=== PATIENT | male | born 1965 | race Caucasian/White ===

== ENCOUNTER 2024-04-29 11:34 | Outpatient (CLI) | payer BC, SELFPAY ==
--- NOTE | 2024-04-29 11:45 | CT_ITS ---
WS: [id number] CT ABDOMEN AND PELVIS WITH CONTRAST HISTORY: r/o appendicitis - RLQ abd pain and rebound TECHNIQUE: Imaging performed of the abdomen and pelvis with IV contrast. Single phase imaging of the abdomen. Coronal and sagittal reformats are submitted. All CT scans at [facility] use at [address] one of these dose optimization techniques: automated exposure control; mA and/or kV adjustment per patient size (includes targeted exams where dose is matched to clinical indication); or iterative re construction. IV CONTRAST: Omnipaque 350; 100 mL IV. Oral contrast: No DLP: 611.37 mGy.cm COMPARISON: None available. Lower thorax: Lung bases are clear. Heart is normal size. No hiatal hernia. Liver/biliary system: Normal size with no intrahepatic dilatation. Gallbladder: Normal. No gallstones or wall thickening. No pericholecystic fluid. Pancreas: Normal size pancreas and pancreatic duct. No adjacent inflammation. Spleen: Normal size spleen. No mass or infarct. Adrenal glands: Normal. Right kidney: Normal. Left kidney: Normal. Aorta: Normal. Lymphadenopathy: None. Free fluid: None. GI tract: Acute inflammatory changes surrounding the appendix. The appendix is dilated to 15 mm. Mild to marked hyperemia. No perforation or abscess. No free fluid. Otherwise negative. Abdominal wall: Unremarkable abdominal wall. No hernia. Pelvis: No free fluid or adenopathy within the pelvis. Bones: Unremarkable. CT/CT abdomen pelvis w con* [id number] IMPRESSION: 1. Acute appendicitis without perforation. 2. No additional acute findings. Notified Silvano Tolliver MD at 04/29/2024 12:13 PM. Patient directed to the emergency department per Dr. Tolliver.
[2024-04-29] MEDS: iohexol 350 mg/mL 500 mL Btl (per mL) IV (11:50)
== END 2024-04-29 11:35 | disposition home or self-care (01) ==
LOC: RAD 11:34
PROVIDERS: Family Provider Family Medicine; PCP Family Medicine; Visit Provider Family Medicine
DX: K35.80 Unspecified acute appendicitis
CPT/HCPCS: 74177; Q9967

== ENCOUNTER 2024-04-29 12:16 | Day surgery (SDC) | payer BC, SELFPAY ==
[2024-04-29] VITALS (14 sets, daily range): BP systolic 114–166; BP diastolic 74–100; PULSE 64–912; RESP 14–18; TEMP 36.2–36.7; O2SAT 90–98
--- NOTE | 2024-04-29 12:45 | W.ED.ABDPA2 ---
HPI - Abdominal Pain General: Chief Complaint: Abdominal Pain Stated Complaint: sent by CT (appendicitis) Time Seen by Provider: 04/29/24 12:18 Source: patient Mode of arrival: ambulatory Limitations: no limitations History of Present Illness: 50-year-old male states been having right lower quadrant abdominal pain since last night states it worsened today and his pain was a 7 out of 10 he was seen by his PCP and sent here to have a CT scan that did show appendicitis and sent to the ER he rates his pain a 4 out of 10 currently denies any vomiting or diarrhea y Associated Symptoms: Denies chills, diarrhea, fever(s), nausea and vomiting Review of Systems Const: Denies: fever(s), chills, body aches or change in appetite ENMT: Denies: throat pain or dental pain Card: Denies: chest pain Resp: Denies: dyspnea GI: Reports: abdominal pain; Denies: nausea, vomiting or diarrhea Musc: Denies: neck pain or back pain Skin/Breast: Denies: rash Neuro: Denies: headache(s) PFSH ED PFSH: Social History Smoking and tobacco/nicotine status: unknown if used tobacco/nicotine Physical Exam Const: COMMON NORMALS: no acute distress, patient oriented x3 and healthy appearing HENMT: COMMON NORMALS: normocephalic and atraumatic HEAD & SCALP: normocephalic and atraumatic Neck/C-Spine: COMMON NORMALS: full ROM and supple Chest: COMMONS NORMALS: normal inspection of the chest Resp: COMMON NORMALS: normal respiratory effort Cardio: COMMON NORMALS: regular rate, regular rhythm and No murmurs present (Cardio) RATE: regular rate RHYTHM: regular rhythm GI: COMMON NORMALS: Normal to inspection, nondistended, normoactive bowel sounds present, Soft to palpation and no masses PALPATION: Yes Soft to palpation and Yes Tenderness to palpation present (GI) Details: RLQ Extremity: COMMON NORMALS: normal to inspection and full ROM Neuro: COMMON NORMALS: patient oriented x3, moves all extremities and no focal motor deficits Psych: COMMON NORMALS: mental status grossly normal, Normal thought process present and cooperative THOUGHT PROCESS: Normal thought process present Skin: COMMON NORMALS: no rashes or lesions noted and no wounds GENERAL SKIN EXAM: no rashes or lesions noted Course Vital Signs: Vital signs: Vital Signs Temperature 97.6 F 04/29/24 12:26 Pulse Rate 912 H 04/29/24 12:26 Respiratory Rate 14 04/29/24 12:26 Blood Pressure 147/96 04/29/24 12:26 Pulse Oximetry 96 04/29/24 12:26 Oxygen Delivery Me thod Room Air 04/29/24 12:26 MDM - Abdominal Pain Medical Decision Making Patient presents here with appendicitis I did speak to Dr. Olmedo patient had IV antibiotics started will go to the OR Medical Records I reviewed the patient's medical records. Lab Data I reviewed the patient's lab results. All radiology interpretation(s) finalized by discharge Discharge Plan Discharge Patient Disposition: Admitted As Inpatient Clinical Impression: Acute appendicitis Condition: Stable Prescriptions: No Action levothyroxine 75 mcg tablet See Rx Instructions .ROUTE .COMPLEX Qty: 90 11RF Dose Instruction: TAKE 1 TABLET BY MOUTH DAILY 30 MINUTES PRIOR TO FOOD OR MEDS IN THE MORNING Rx Instructions: TAKE 1 TABLET BY MOUTH DAILY 30 MINUTES PRIOR TO FOOD OR MEDS IN THE MORNING Referrals: Silvano Tolliver MD [Primary Care Provider] - Patient Instructions: Appendicitis (GEN) Coding Level of Care Code ED Equipment Maintenance Superintendent for Suly Meyer
[2024-04-29] MEDS: piperacillin-tazobactam 3.375 GM in sodium chloride 0.9% (plus) 50 ML IV (12:58)
[2024-04-29 13:01] LABS: Basophils % 0.3 %; Eosinophils % 0.1 %; Hematocrit 44.6 % (37-53); Lymphocytes # 1.1 10^3/uL (0.8-4.8); Lymphocytes % 7.7 %; Mean Platelet Volume 9.9 fL (7.4-10.4); Monocytes # 1.2 10^3/uL (0.2-0.9); Monocytes % 8.1 %; Neutrophils # 11.97 10^3/uL (1.8-7.7); Neutrophils % 83.2 %; Nucleated Red Blood Cells % 0 %; Platelet Count 260 10^3/cmm (157-399); Red Blood Count 5.07 10^6/uL (3.85-5.65); Red Cell Distribution Width 14.2 % (12.1-15.1); White Blood Count 14.38 10^3/uL (3.29-11.43)
--- NOTE | 2024-04-29 13:16 | PC.NURSE ---
pt upon arriving to er was informed of NPO status. pt aware and voiced understanding. pt states he has not ate any food since 5pm yesterday, and states that he had only a few small sips of water this morning, nothing else. pt changed into gown, hospital socks, and has a 20g iv estb. to right ac.
[2024-04-29 13:23] LABS: Alanine Aminotransferase 15 U/L (0-41); Albumin Level 4.5 g/dL (3.5-5.2); Alkaline Phosphatase 81 U/L (40-130); Anion Gap 17.6 (5-19); Aspartate Amino Transferase 11 U/L (0-40); Blood Urea Nitrogen 20 mg/dL (6-20); Calcium 9.2 mg/dL (8.5-10.5); Carbon Dioxide 22 mmol/L (22-29); Chloride 103 mmol/L (98-107); Creatinine Clr Calc Pharmacy 156.4947; Globulin 3.4 g/dL (1.3-4.6); Glomerular Filtration Rate 138.4 mL/min (90-130); Glucose 106 mg/dL (65-115); Lipase 17 U/L (13-60); Osmolality Calculated 289 mOsm/kg (285-295); Potassium 4.6 mmol/L (3.5-5.1); Sodium 138 mmol/L (136-145); Total Bilirubin 0.3 mg/dL (0.15-1.2); Total Protein 7.9 g/dL (6.6-8.7)
--- NOTE | 2024-04-29 13:34 | ANES.PREANE2 ---
Pre-Anesthetic Assessment Height/Weight: Height 1.78 m Weight 96.615 kg Temp Pulse Resp BP Pulse Ox O2 Del Method 97.6 F 84 16 128/77 96 Room Air 04/29/24 12:26 04/29/24 13:05 04/29/24 13:05 04/29/24 13:05 04/29/24 13:05 04/29/24 13:05 Operation Date: 04/29/24 13:30 Proposed Procedures p Laparoscopic Appendectomy(Not Applicable) - Jg Olmedo DO Familial anesthetic complications: None Was Beta Odalys taken within 24 hours: N/A Was Clonidine taken within 24 hours: N/A Last intake: > 8 hrs Social No alcohol and No tobacco Exam alert, oriented x 3, clear to auscultation bilaterally and regular rate & rhythm Airway Mallampati: Class II Dentition: other (couple missing) Metabolic Thyroid Disease Anesthetic Plan ASA status: 2 Anesthesia: General Risk of > 500 ml blood loss (7ml/kg in children): No Medications/Allergies Home Medications Medication Instructions Recorded Confirmed Last Taken Type levothyroxine 75 mcg tablet See Rx Instructions .Route 11/01/23 04/29/24 Unknown Rx .COMPLEX #90 tabs Allergies Allergy/AdvReac Type Severity Reaction Status Date / Time No Known Allergies Allergy Unverified 08/21/22 13:14 [facility] Anesthesia Social History Smoking and tobacco/nicotine status: unknown if used tobacco/nicotine Data Anesthesia 04/29/24 12:42 04/29/24 12:42 Short CBC 04/29/24 Range/Units 12:42 WBC 14.38 H (3.29-11.43) 10^3/uL Hgb 14.70 (11.27-16.99) g/dL Hct 44.6 (37-53) % MCV 88.0 (82-101) fl Plt Count 260 (157-399) 10^3/cmm Neut % (Auto) 83.2 % Neut # (Auto) 11.97 H (1.8-7.7) 10^3/uL BMP 04/29/24 12:42 Sodium 138 Potassium 4.6 Chloride 103 Carbon Dioxide 22 BUN 20 Creatinine 0.6 L Glucose 106 Calcium 9.2 Liver Function 04/29/24 Range/Units 12:42 Total Bilirubin 0.3 (0.15-1.2) mg/dL AST 11 (0-40) U/L ALT 15 (0-41) U/L Alkaline Phosphatase 81 (40-130) U/L Albumin 4.5 (3.5-5.2) g/dL Cardiac Studies: No Data to Display
--- NOTE | 2024-04-29 13:46 | PM.HP ---
Providers/Chief Complaint Primary Care Provider: Silvano Tolliver MD Chief Complaint: sent by CT (appendicitis?) History of Present Illness Jabari Coley is a 58 year old male that is a hospital with a 1 day history of right lower quadrant abdominal pain. He does report having hot flashes and chills at home. His pain is sharp and constant and does not radiate. Palpation makes pain worse. Nothing makes pain better. He reports nausea but denies any emesis, diarrhea, constipation, hematochezia and/or melena. CT abdomen pelvis shows acute appendicitis Review of Systems General: Reports: 10 or more systems reviewed and unremarkable except in HPI and below Medications/Allergies Home Medications Medication Instructions Recorded Confirmed Last Taken Type levothyroxine 75 mcg tablet See Rx Instructions .Route 11/01/23 04/29/24 04/28/24 Rx .COMPLEX #90 tabs [place] 3 Fish Oil 04/29/24 04/28/24 History Allergies Allergy/AdvReac Type Severity Reaction Status Date / Time No Known Allergies Allergy Unverified 08/21/22 13:14 PFSH Acute PFSH: Social History Smoking and tobacco/nicotine status: unknown if used tobacco/nicotine Vitals/I&O/Wt Last Vital Signs Temp 97.6 F 04/29/24 12:26 Pulse 84 04/29/24 13:05 Resp 16 04/29/24 13:05 BP 128/77 04/29/24 13:05 Pulse Ox 96 04/29/24 13:05 O2 Del Method Room Air 04/29/24 13:05 Weight last 48 hrs Weight 213 lb Physical Exam Narrative: General : Patient is well developed , no acute distress, oriented x3 Head : Normal cephalic, a-traumatic. Ears : Pinnae and external canal are normal. Hearing is normal. Eyes : PERRLA, Sclera and injection are normal. No conjunctival discharge. Nose : Mucous membranes are without erythema. Throat : buccal mucosa is normal, gums are without significant recession or hypertrophy. Lungs : Equal chest rise bilaterally, no use of accessory muscles, trachea is midline. Cor : Rate and rhythm are normal. Abdomen : Soft, ND, tender to palpation right lower quadrant, negative Rovsing's, no g/r/m Extremities : No edema, no cyanosis or clubbing, dorsalis pedis pulses are present bilaterally, non-tender to palpation of calves. Upper extremities are normal bilaterally. Back : non-tender to palpation, no CVA tenderness. Neuro : CN II - XII intact, Upper and lower extremities have equal and full strength Data 04/29/24 12:42 04/29/24 12:42 A&P Assessment and plan (1) Acute appendicitis: Plan Laparoscopic Appendectomy The risks and benefits of the procedure, including but not limited to, bleeding, infection, scar, numbness, pain, damage to surrounding structures, conversion to an open procedure, were explained to the patient. He is understanding of the risks and wishes to proceed. Attestations Medical Necessity Statement*: If this is a straightforward appendectomy and there is no perforation he may be discharged home today on antibiotics Coding Level of Care Code 36116 Diagnoses Acute appendicitis K35.80
[2024-04-29] MEDS: sodium chloride 0.9% 1,000 ML 30 ML IV (13:55)
[2024-04-29] MEDS: acetaminophen 1,000 MG/100 ML PIGGYBACK 400 MG IV (14:06)
[2024-04-29] MEDS: lidocaine-epi 2% PF 1:200,000 20 mL SDV 10 ML XX (14:35)
--- NOTE | 2024-04-29 14:46 | P.OP_ITS ---
Operative Report Date of procedure: April 29, 2024 Pre-op diagnosis: Acute appendicitis Post-op diagnosis: same Procedure done: Laparoscopic appendectomy Implants: None Specimens removed/disposition: Appendix Surgeon: Jg Olmedo DO Anesthesia: General and Local Estimated blood loss (mL): 5 Complications: None apparent Brief History: This is a very pleasant 58-year-old gentleman who presented to hospital with abdominal pain. He was diagnosed with acute appendicitis. Laparoscopic appendectomy was indicated. The risks benefits were splinted documented. Procedure: Patient was wheeled into the operative room and placed on the OR table in a supine position. Abdomen was inspected prepped and draped in usual sterile fashion. Time-out was performed and all present were in agreement. A 15 blade scalp was used to make a stab incision in the left upper quadrant and intra- abdominal insufflation was achieved using a Veress needle. After localizing the tissue incisions were made and a 12 millimeter trocar was placed into the umbilicus as well as a 5mm in the right lower quadrant and a 5 mm in the left lower quadrant . The appendix was identified and was mildly inflamed. I used the LigaSure to ligate the mesoappendix at the base. I then used 2 PDS endo- loops to snare the base of the appendix. I then used the LigaSure to ligate the appendix distally. The appendix was removed from the abdomen using an Endo- Catch bag through the umbilical incision. I examined the abdomen and no further pathology was identified. Hemostasis was noted. I then closed the umbilical site with a Mark-Debora and 0 Vicryl suture in a figure of 8 fashion. All ports removed. Skin was washed and dried. Incisions were closed with 4 O Vicryl in a subcuticular interrupted fashion. Skin glue was applied. Patient tolerated the procedure well.
--- NOTE | 2024-04-29 16:25 | ANE.PACU2 ---
Inpatient post-anesthesia follow up: Airway intact: Yes Vital signs: Temperature 97.9 F Pulse Rate 71 Respiratory Rate 14 Blood Pressure 127/83 Pulse Oximetry 92 Oxygen Delivery Me thod Room Air Oxygen Flow Rate 6 Fraction of Inspir ed Oxygen Hydration adequate: Yes Nausea and vomiting: No Pain level: 1 Mental status: Baseline
== END 2024-04-29 16:30 | disposition home or self-care (01) ==
LOC: ER 13:03 → OR 13:13
PROVIDERS: Emergency Provider Emergency Medicine; PCP Family Medicine; Visit Provider Surgery
PROC: 0DTJ4ZZ Resection of Appendix, Percutaneous Endoscopic Approach (ICD-10-PCS; CPT 44970; principal; 2024-04-29 13:30)
DX: K35.80 Unspecified acute appendicitis (principal)
CPT/HCPCS: 44970; 36415; 80053; 83690; 85025; 88304; J0131; J1100; J1170; J2405; J2543; J2704; J2710; J3010; J3490; J7030